=== PATIENT | male | born 2000 | race Asian ===

== ENCOUNTER 2020-01-31 13:56 | Emergency (ER) | payer OTHER ==
[2020-01-31] MEDS ORDERED: Lidocaine 2% VISCOUS* 15 ML UDC PO ONE (15:37)
[2020-01-31] MEDS ORDERED: Ibuprofen TAB* 600 MG PO ONE (15:38)
--- NOTE | 2020-01-31 15:43 | ED ---
Throat Pain/Nasal Congestion - HPI Summary HPI Summary: 19-year-old male presents to the emergency department today with a chief complaint of a sore throat. Patient states he has a 6 out of 10 sore throat which began 2 days ago with no associated fever. Patient states due to his sore throat he's had difficulty with by mouth fluids and food. Patient has been taking ibuprofen for alleviation of his pain. Patient states he also has mild chest congestion with mild shortness of breath. Patient states he has had mono for 1 year and his symptoms "never really went away". Patient otherwise feels well and denies changes in vision, headache, drooling, difficulty breathing, abdominal pain, nausea, vomiting, diarrhea, cough. - History of Current Complaint Chief Complaint: EDShortnessOfBreath Time Seen by Provider: 01/31/20 15:24 Hx Obtained From: Patient Onset/Duration: Gradual Onset, Lasting Days Severity: Moderate Associated Signs And Symptoms: Positive: Dysphagia. Negative: Drooling, Wheezing, Hoarseness Cough: None - Allergies/Home Medications Allergies/Adverse Reactions: Allergies Allergy/AdvReac Type Severity Reaction Status Date / Time fluconazole Allergy Rash Verified 01/31/20 14:07 Home Medications: Home Medications Cetirizine* [ZyrTEC 10 MG TAB*] 10 mg PO DAILY 01/31/20 [History Confirmed 01/30] ValACYclovir (*) [Valtrex 500 mg (*)] 1,000 mg PO BID 01/31/20 [History Confirmed 01/31/20] PMH/Surg Hx/FS Hx/Imm Hx Infectious Disease History: No Infectious Disease History: Denies: Traveled Outside the [place] in Last 30 Days Review of Systems Constitutional: Negative Eyes: Negative Positive: Sore Throat. Negative: Dental Pain Cardiovascular: Negative Positive: Shortness Of Breath. Negative: Cough Gastrointestinal: Negative Genitourinary: Negative Musculoskeletal: Negative Skin: Negative Neurological/Mental Status: Negative Psychological: Normal All Other Systems Reviewed And Are Negative: Yes Physical Exam - Summary Physical Exam Summary: Patient is in no acute distress. There is no evidence of accessory muscle use. Patient speaks in full and broken sentences. No stridor, wheezing, tracheal deviation. Patient's resting comfortably on the stretcher. Patient's pharynx is mildly erythematous but there is no tonsillar swelling or exudate. Uvula is midline. Triage Information Reviewed: Yes Vital Signs On Initial Exam: Initial Vitals Temp Pulse Resp BP Pulse Ox 97.8 F 100 18 134/86 95 01/31/20 14:06 01/31/20 14:06 01/31/20 14:06 01/31/20 14:06 01/31/20 14:06 Vital Signs Reviewed: Yes Appearance: Positive: Well-Appearing, No Pain Distress, Well-Nourished Skin: Positive: Warm, Skin Color Reflects Adequate Perfusion Eyes: Positive: EOMI, KAVON ENT: Positive: Hearing grossly normal Respiratory/Lung Sounds: Positive: Clear to Auscultation, Breath Sounds Present. Negative: Tracheal Deviation, Wheezes, Unable to speak in full sentences Cardiovascular: Positive: RRR, S1, S2 Abdomen Description: Positive: Nontender, Soft Bowel Sounds: Positive: Present Musculoskeletal: Positive: Strength/ROM Intact Neurological: Positive: Sensory/Motor Intact, Alert, Oriented to Person Place, Time, Normal Gait, Facial Symmetry, Speech Normal Psychiatric: Positive: Affect/Mood Appropriate AVPU Assessment: Alert Procedures - Sedation Patient Received Moderate/Deep Sedation with Procedure: No Diagnostics - Vital Signs Vital Signs Temp Pulse Resp BP Pulse Ox 01/31/20 14:06 97.8 F 100 18 134/86 95 - Laboratory Lab Statement: Any lab studies that have been ordered have been reviewed, and results considered in the medical decision making process. EENT Course/Dx - Course Course Of Treatment: Patient was evaluated in emergency department today for sore throat. Vitals noted and stable. Patient afebrile. No evidence of peritonsillar abscess. Patient was given by mouth fluids as well as viscous lidocaine swallow and ibuprofen for his symptoms. Patient tolerated by mouth fluids well. Patient diagnosed with viral pharyngitis and discharged with outpatient follow-up. This patient was considered low risk for transmission of COVID 19 and was not tested. - Differential Diagnoses Differential Diagnoses: Laryngitis, Pharyngitis, Tonsilitis, URI/Bronchitis - Diagnoses Provider Diagnoses: Acute pharyngitis Discharge ED - Sign-Out/Discharge Documenting (check all that apply): Patient Departure - Discharge Plan Condition: Stable Disposition: HOME Patient Education Materials: Pharyngitis (ED) Referrals: Dario Rangel WRAPPER AND PRESERVER [Primary Care Provider] - 5 Days Additional Instructions: You were seen in the emergency department today due to a sore throat. Acute pharyngitis is most often caused by upper respiratory viruses. Please follow- up with your primary care provider in 5-7 days if you continue to have severe symptoms as you may require antibiotics at that time. You are considered low risk for COVID-19 due to your history. Please take ibuprofen 600 mg every 6 hours as needed for pain as well as use of other measures such as warm tea with honey for alleviation of your pain. Please return to the emergency department immediately should you develop any new or worsening symptoms. - Billing Disposition and Condition Condition: STABLE Disposition: Home
--- OUTSIDE RECORDS SUMMARY | 2020-01-31 16:08 | XMS REPORT | Continuity of Care Document ---
:2000 External Reference #:[id number] Author Name Dario Rangel NP Address 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 Problems Description No Information Available Social History Type Date Description Comments Sex Unknown ETOH Use Denies alcohol use Tobacco Use Start: Unknown Patient has never smoked Smoking Status Reviewed: 01/19/20 Patient has never smoked Allergies, Adverse Reactions, Alerts Description No Information Available Medications Active Medications SIG Qnty Indications Ordering Provider Date Cetirizine HCL 1 by mouth every Unknown 10mg day Tablets Valacyclovir HCL two tablets twice Unknown 500mg daily Tablets Immunizations Description No Information Available Vital Signs Date Vital Result Comment 01/19/2020 11:04am Height 71 inches 5'11" Heart Rate 85 /min BP Systolic 129 mmHg BP Diastolic 72 mmHg Body Temperature 97.2 F Results Description No Information Available Procedures Description No Information Available Medical Devices Description No Information Available Encounters Description No Information Available Assessments Date Code Description Provider 01/19/2020 R53.83 Other fatigue Dario Rangel NP 01/19/2020 M79.10 Myalgia, unspecified site Dario Rangel NP 01/19/2020 R10.12 Left upper quadrant pain Dario Rangel NP Plan of Treatment 01/19/2020 - Dario Rangel NPR53.83 Other fatigueComments:I am ordering some lab work to evaluate your symptoms. I will notify you of the results.M79.10 Myalgia , unspecified siteR10.12 Left upper quadrant pain Functional Status Description No Information Available Mental Status Description No Information Available Referrals Description No Information Available
--- OUTSIDE RECORDS SUMMARY | 2020-01-31 16:08 | XMS REPORT | Continuity of Care Document ---
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 No Information Available Social History [...] 72 mmHg Body Temperature 97.2 F Results Test Acquired Date Facility Test Result H/L Range Note CBC Auto 01/19/2020 [facility] White Blood 5.1 10^3/uL Normal 3.5-10.[address] Count [place], [place] [id number] [phone] Red Blood Count 5.52 10^6/uL High 4.18-5.48 Hemoglobin 16.9 g/dL Normal 14.0-18.0 Hematocrit 49 % Normal 42-52 Mean Corpuscular Volume 88 fL Normal 80-94 Mean Corpuscular Hemoglobin 31 pg Normal 27-31 Mean Corpuscular HGB Conc 35 g/dL Normal 31-36 Red Cell Distribution Width 13 % Normal 10-15 Platelet Count 231 10^3/uL Normal 150-450 Mean Platelet Volume 7.2 fL Low 7.4-10.4 Abs Neutrophils 3.0 10^3/uL Normal 1.5-7.7 Abs Lymphocytes 1.6 10^3/uL Normal 1.0-4.8 Abs Monocytes 0.3 10^3/uL Normal 0-0.8 Abs Eosinophils 0.1 10^3/uL Normal 0-0.6 Abs Basophils 0.0 10^3/uL Normal 0-0.2 Abs Nucleated RBC 0.0 10^3/uL Granulocyte % 60.2 % Lymphocyte % 31.4 % Monocyte % 6.7 % Eosinophil % 1.4 % Basophil % 0.3 % Nucleated Red Blood Cells % 0.0 Comp Metabolic 01/19/2020 [facility] Sodium 139 mmol/L Normal 135-[address] [place] [address] [phone] Potassium 3.9 mmol/L Normal 3.5-5.0 Chloride 105 mmol/L Normal 101-111 Co2 Carbon Dioxide 25 mmol/L Normal 22-32 Anion Gap 9 mmol/L Normal 2-11 Glucose 102 mg/dL High 70-100 Blood Urea Nitrogen 16 mg/dL Normal 6-24 Creatinine 0.77 mg/dL Normal 0.67-1.17 BUN/Creatinine Ratio 20.8 High 8-20 Calcium 10.1 mg/dL Normal 8.6-10.3 Total Protein 7.6 g/dL Normal 6.4-8.9 Albumin 5.0 g/dL Normal 3.2-5.2 Globulin 2.6 g/dL Normal 2-4 Albumin/Globulin Ratio 1.9 Normal 1-3 Total Bilirubin 0.40 mg/dL Normal 0.2-1.0 Alkaline Phosphatase 88 U/L Normal 34-104 Alt 15 U/L Normal 7-52 Ast 16 U/L Normal 13-39 Egfr Non- 128.8 >60 Egfr 155.9 >60 1 CMV 01/19/2020 [facility] Cytomegalovirus Positive Abnormal Negative 2 Igg/Igm 101 [place] [address] [phone] Cytomegalovirus IgM Antibody Positive Abnormal Negative 3 Laboratory 01/19/2020 [facility] TSH (Thyroid 4.03 Normal 0.34 -5.[address] Stim Horm) mcIU/[place] [address] [phone] Monospot Negative Negative 4 Vitamin B12 457 pg/mL Normal 180-914 5 Erythrocyte Sed Rate 2 mm/Hr Normal 0-14 6 C Reactive Protein 1.71 mg/L Normal <8.01 Lyme Screen W/ Reflex To WB Negative Negative Nuclear AB 01/19/2020 [facility] Nuclear Ab Positive 1:320 Abnormal 7 (Dalia) By [facility] [address] (Dalia) by [facility], [place] [address] IgG [phone] Dalia Titer: 1:320 Dalia Pattern: Speckled 8 Laboratory test 01/19/2020 [facility] Lipase 29 U/L Normal 11.0-82.[address] [place] [address] [phone] Ebv Guy Piper 01/19/2020 [facility] Ebv Capsid Positive Negative Comprehensive [address] [place] [address] [phone] Ebv Capsid Ag IgM Ab Negative Negative Guy-Piper Nuclear Antigen Positive Negative Guy-Piper Virus Interp See Comment 9 1 Because ethnic data is not always readily available, this report includes an eGFR for both -Americans and non- Americans. The National Kidney Disease Education Program (NKDEP) does not endorse the use of the MDRD equation for patients that are not between the ages of 18 and 70, are , have extremes of body size, muscle mass, or nutritional status, or are non- or non-. According to the National Kidney Foundation, irrespective of diagnosis, the stage of the disease is based on the level of kidney function: Stage Description GFR(mL/min/1.73 m(2)) 1 Kidney damage with normal or decreased GFR 90 2 Kidney damage with mild decrease in GFR 60-89 3 Moderate decrease in GFR 30-59 4 Severe decrease in GFR 15-29 5 Kidney failure <15 (or dialysis) 2 Test Performed by: [facility] [address] [place] [address] Digital Solutions Architect: Randy Silva M.D. Ph.D.; CLIA# [id number] 3 Results suggest recent infection. 4 Would you like an EBV if Monospot is Negative?: Y 5 Normal Range 180 to 914 Indeterminate Range 145 to 180 Deficient Range <145 6 Would you like an EBV if Monospot is Negative?: Y 7 REFERENCE VALUE <1:80 (Negative) 8 Test Performed by: [place] [address] Digital Solutions Architect: Randy Silva M.D. Ph.D.; CLIA# [id number] 9 RESULT: Results suggest past infection. ADDITIONAL INFORMATION In most populations, at least 90% of the adult population will have been infected with EBV sometime in the past and therefore, will be positive for anti-VCA/IgG and anti- EBNA. Antibodies to EBNA develop 6-8 weeks after primary infection and remain present for life. Presence of VCA/ IgM antibodies indicates recent primary infection with EBV. Test Performed by: [place] [address] Digital Solutions Architect: Randy Silva M.D. 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 I will notify you of the results.M79.10 Myalgia , unspecified siteR10.12 Left upper quadrant pain Functional Status Description No Information Available Mental Status Description No Information Available Referrals Description No Information Available
--- OUTSIDE RECORDS SUMMARY | 2020-01-31 16:08 | XMS REPORT | Continuity of Care Document ---
:1999 External Reference #:[id number] Author Name Allergy Injection (transmitted by agent of provider Krissy March) Address [address] [id number] Problems Active Problems Provider Date Allergic rhinitis due to pollen Yony Rosario M.D. Onset: 11/21/2019 Social History Type Date Description Comments Sex Unknown ETOH Use Denies alcohol use Tobacco Use Start: Unknown Patient has never smoked Recreational Drug Use Denies Drug Use Allergies, Adverse Reactions, Alerts Description No Known Drug Allergies Medications Active Medications SIG Qnty Indications Ordering Provider Date Epinephrine use as directed - 2units Cindy Castle, 12/02/2019 0.3mg/0.3ML mylan generic TAX ACCOUNTANT-C Solution Auto-Inject only [facility]# [id number] Nasacort Allergy 24HR spray 1 spray Unknown into each nostril 55mcg/Act Aerosol one time daily History Medications No Active Medications Unknown 11/21/2019 - 11/21/2019 Medications Administered in Office Medication SIG Qnty Indications Ordering Provider Date Injection Allergy Injection 01/12/2020 Injection Injection Allergy Injection 01/05/2020 Injection Injection Allergy Injection 12/29/2019 Injection Injection Allergy Injection 12/22/2019 Injection Injection Allergy Injection 12/15/2019 Injection Injection Allergy Injection 12/08/2019 Injection Injection Allergy Injection 12/01/2019 Injection Injection Allergy Injection 11/24/2019 Injection Immunizations Description No Information Available Vital Signs Date Vital Result Comment 11/21/2019 1:40pm Height 70 inches 5'10" Weight 190.00 lb Weight 86.184 kg Respiratory Rate 18 /min Heart Rate 80 /min O2 % BldC Oximetry 98 % BP Systolic 136 mmHg BP Diastolic 83 mmHg BMI (Body Mass Index) 27.3 kg/m2 Results Description No Information Available Procedures Date Code Description Status 01/12/2020 86493 Injection Completed 01/05/2020 35458 Injection Completed 12/29/2019 01743 Injection Completed 12/22/2019 90762 Injection Completed 12/15/2019 37876 Injection Completed 12/08/2019 14940 Injection Completed 12/01/2019 42272 Injection Completed 11/24/2019 12107 Injection Completed Medical Devices Description No Information Available Encounters Type Date Location Provider Dx Diagnosis Office Visit 11/21/2019 2:20p Iza Rosario M.D. J30.1 Allergic rhinitis due to pollen Assessments Date Code Description Provider 01/12/2020 J30.1 Allergic rhinitis due to pollen Yony Rosario M.D. 01/12/2020 J30.1 Allergic rhinitis due to pollen Allergy Injection 01/12/2020 J30.89 Other allergic rhinitis Yony Rosario M.D. 01/12/2020 J30.89 Other allergic rhinitis Allergy Injection 01/05/2020 J30.1 Allergic rhinitis due to pollen Yony Rosario M.D. 01/05/2020 J30.1 Allergic rhinitis due to pollen Allergy Injection 01/05/2020 J30.89 Other allergic rhinitis Yony Rosario M.D. 01/05/2020 J30.89 Other allergic rhinitis Allergy Injection 12/29/2019 J30.1 Allergic rhinitis due to pollen Yony Rosario M.D. 12/29/2019 J30.1 Allergic rhinitis due to pollen Allergy Injection 12/29/2019 J30.89 Other allergic rhinitis Yony Rosario M.D. 12/29/2019 J30.89 Other allergic rhinitis Allergy Injection 12/22/2019 J30.1 Allergic rhinitis due to pollen Yony Rosario M.D. 12/22/2019 J30.1 Allergic rhinitis due to pollen Allergy Injection 12/22/2019 J30.89 Other allergic rhinitis Yony Rosario M.D. 12/22/2019 J30.89 Other allergic rhinitis Allergy Injection 12/15/2019 J30.1 Allergic rhinitis due to pollen Yony Rosario M.D. 12/15/2019 J30.1 Allergic rhinitis due to pollen Allergy Injection 12/15/2019 J30.89 Other allergic rhinitis Yony Rosario M.D. 12/15/2019 J30.89 Other allergic rhinitis Allergy Injection 12/08/2019 J30.1 Allergic rhinitis due to pollen Yony Rosario M.D. 12/08/2019 J30.1 Allergic rhinitis due to pollen Allergy Injection 12/08/2019 J30.89 Other allergic arun Rosario M.D. 12/08/2019 J30.89 Other allergic rhinitis Allergy Injection 12/01/2019 J30.1 Allergic rhinitis due to pollen Yony Rosario M.D. 12/01/2019 J30.1 Allergic rhinitis due to pollen Allergy Injection 12/01/2019 J30.89 Other allergic rhinitis Yony Rosario M.D. 12/01/2019 J30.89 Other allergic rhinitis Allergy Injection 11/24/2019 J30.1 Allergic rhinitis due to pollen Yony Rosario M.D. 11/24/2019 J30.1 Allergic rhinitis due to pollen Allergy Injection 11/21/2019 J30.1 Allergic rhinitis due to pollen Yony Rosario M.D. Plan of Treatment No Information Available Functional Status Description No Information Available Mental Status Description No Information Available Referrals Description No Information Available
--- OUTSIDE RECORDS SUMMARY | 2020-01-31 16:08 | XMS REPORT | Summary of Care ---
:2000 Author Organization [facility] Address [address] [place] [address] Care Team Providers Name Role Phone Jordon Franklin MD Primary Care Provider Encounter Details Date Type Department Care Team Description 12/13/2019 Office Visit FAX UROLOGY Bob Galloway, Pain (Primary Dx) [address] [place] [address] [phone] [place] [address] [phone] Allergies No Known Allergiesdocumented as of this encounter (statuses as of 01/03/2020) Medications Medication Sig Dispensed Refills Start Date End Date Status cetirizine (ZyrTEC) Take 10 mg by 0 Active 10 mg tablet mouth 1 (one) time each day in the evening. lidocaine-prilocain Apply topically if 1 kit 0 12/13/2019 12/20/2019 e (EMLA) needed for mild creamIndications: pain for up to 7 Pain days. Apply topically to affected area BID for 7 days. Dispense 1 tube. documented as of this encounter (statuses as of 01/03/2020) Active Problems Problem Noted Date Pain 01/03/2020 Phimosis 10/05/2019 Depression documented as of this encounter (statuses as of 01/03/2020) Social History Tobacco Use Types Packs/Day Years Used Date Never Smoker Smokeless Tobacco: Never Used Alcohol Use Drinks/Week oz/Week Comments Not Currently Sex Assigned at Date Recorded Not on file Job Start Date Occupation Industry Not on file Not on file Not on file Travel History Travel Start Travel End No recent travel history available. documented as of this encounter Last Filed Vital Signs Not on filedocumented in this encounter Progress Notes Bob Galloway MD - 12/13/2019 3:45 PM EST FOLLOW-UP UROLOGY OFFICE VISIT Date 01/03/20 Urology Provider Bob Galloway MD Diagnosis / Summary 19-year-old manwithredundant foreskin and phimosis. Patient also has frenular adhesion that is painful with erections.Patient underwent circumcision and frenuloplasty 10/17/2019. Patient had a pseudomonal infection of the wound treated with Cipro. At visit 11/22/2019 we discussed extending course of Cipro for 5 more days with reassessment in 1 week. He reports minor improvement. There is still itching at the incision site. We discussed possibility of topical hydrocortisone cream for 14 days for itching. We will reassess symptoms in 2 weeks. Interval History Patient presents today for symptom reassessment. He reports improvement. There is still minor itching at the suture line. Since last time he denies new onset gross hematuria, dysuria, frequency urgency, difficulty with urination. Past Medical History He has a past medical history of Depression, Intact skin, Phimosis, Phimosis of penis, and Wears glasses. Surgical History He has a past surgical history that includes Circumcision, non- (2018). Social History He reports that he has never smoked. He has never used smokeless tobacco. He reports that he drank alcohol. He reports that he has current or past drug history. Family History Family History Problem Relation Age of Onset Hypertension Father Allergies Patient has no known allergies. Medications Current Outpatient Medications: cetirizine (ZyrTEC) 10 mg tablet, Take 10 mg by mouth 1 (one) time each day in the evening.,Disp: , Rfl: Review of Systems Constitutional: Negative for chills and fever. HENT: Negative for ear pain and sore throat. Eyes: Negative for pain and visual disturbance. Respiratory: Negative for cough and shortness of breath. Cardiovascular: Negative for chest pain and palpitations. Gastrointestinal: Negative for abdominal pain and vomiting. Genitourinary: Negative for dysuria and hematuria. Musculoskeletal: Negative for arthralgias and back pain. Skin: Negative for color change and rash. Neurological: Negative for seizures and syncope. All other systems reviewed and are negative. Physical Exam Constitutional: He is oriented to person, place, and time. He appears well- developed and well-nourished. HENT: Head: Normocephalic. Eyes: Conjunctivae are normal. Neck: Neck supple. Pulmonary/Chest: Effort normal. Abdominal: He exhibits no distension. Genitourinary: Genitourinary Comments: Circumcised penis. Incision sites clean, intact, non indurated. Mild erythema much less than prior. Musculoskeletal: He exhibits no edema. Neurological: He is alert and oriented to person, place, and time. Skin: Skin is warm and dry. Psychiatric: He has a normal mood and affect. Last Recorded Vitals There were no vitals taken for this visit. Relevant Results Lab Results Component Value Date WBC 5.21 10/13/2019 HGB 16.1 10/13/2019 HCT 49.0 10/13/2019 MCV 91.2 10/13/2019 PLT 197 10/13/2019 Lab Results Component Value Date GLUCOSE 98 10/13/2019 CALCIUM 8.9 10/13/2019 NA 141 10/13/2019 K 3.8 10/13/2019 CO2 30.0 10/13/2019 CL 108.0 (H) 10/13/2019 BUN 9 10/13/2019 CREATININE 0.69 10/13/2019 CrCl cannot be calculated (Patient's most recent lab result is older than the maximum 7 days allowed.). Diagnoses Patient Active Problem List Diagnosis Phimosis Depression Assessment 19-year-old manwithredundant foreskin and phimosis. Patient also has frenular adhesion that is painful with erections.Patient underwent circumcision and frenuloplasty 10/17/2019. Patient had a pseudomonal infection of the wound treated with Cipro. At visit 11/22/2019 we discussed extending course of Cipro for 5 more days with reassessment in 1 week. Patient reported some itching at incision site that was treated with topical hydrocortisone cream for 14 days for itching. He reported improvement in symptoms with some minor itching on occasion. We discussed follow up in 1 month. Ifsymptoms resolve , patient will call to cancel appointment. Plan 1. Continue hydrocortisone cream 2.5% BID for 14 days 2. Schedule follow up in 4 weeks. Patient will cancel appointment if symptoms improved. 3. Call with questions or concerns documented in this encounter Plan of Treatment Health Maintenance Due Date Last Done Comments MMR Vaccines (1 of 1 - Standard 2000 series) DTaP,Tdap,and Td Vaccines (1 - 2006 Tdap) Varicella Vaccines (1 of 2 - 13+ 2012 2-dose series) Influenza Vaccine (#1) 2019 Pneumococcal Vaccine: 65+ Years (1 2064 of 2 - PCV13) HIB Vaccines Aged Out No longer eligible based on patient's age to complete this topic Hepatitis A Vaccines Aged Out No longer eligible based on patient's age to complete this topic IPV Vaccines Aged Out No longer eligible based on patient's age to complete this topic documented as of this encounter Results Not on filedocumented in this encounter Visit Diagnoses Diagnosis Pain - Primary Generalized pain documented in this encounter documented as of this encounter Advance Directives Type Date 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
--- OUTSIDE RECORDS SUMMARY | 2020-01-31 16:08 | XMS REPORT | Continuity of Care Document ---
:2000 External Reference #:[id number] Author Name Allergy Injection (transmitted by agent of provider Cathy Justin) Address [address] [place] [address] Problems Active Problems Provider Date Allergic rhinitis [...] 2units Cindy Castle, 12/02/2019 0.3mg/0.3ML mylan generic DAIRY HELPER-C Solution Auto-Inject only [facility]# [id number] Nasacort Allergy 24HR spray 1 spray Unknown into each nostril 55mcg/Act Aerosol one time daily History Medications No Active Medications Unknown 11/21/2019 - 11/21/2019 Medications Administered in Office Medication SIG Qnty Indications Ordering Provider Date Injection Allergy Injection 01/19/2020 Injection Injection Allergy Injection 01/12/2020 Injection Injection Allergy [...] Information Available Procedures Date Code Description Status 01/19/2020 38770 Injection Completed 01/12/2020 68613 Injection Completed 01/05/2020 25107 Injection Completed 12/29/2019 39905 Injection Completed 12/22/2019 13180 Injection Completed 12/15/2019 00699 Injection Completed 12/08/2019 77586 Injection Completed 12/01/2019 46185 Injection Completed 11/24/2019 12328 Injection Completed Medical Devices Description No Information Available Encounters Type Date Location Provider Dx Diagnosis Office Visit 11/21/2019 2:20p Iza Rosairo M.D. J30.1 Allergic rhinitis due to pollen Assessments Date Code Description Provider 01/19/2020 J30.1 Allergic rhinitis due to pollen Yony Rosario M.D. 01/19/2020 J30.1 Allergic rhinitis due to pollen Allergy Injection 01/19/2020 J30.89 Other allergic rhinitis Yony Rosario M.D. 01/19/2020 J30.89 Other allergic rhinitis Allergy Injection 01/12/2020 J30.1 Allergic rhinitis due to pollen [...] pollen Allergy Injection 12/08/2019 J30.89 Other allergic rhinitis Yony Rosario M.D. 12/08/2019 J30.89 Other allergic rhinitis [...]
--- OUTSIDE RECORDS SUMMARY | 2020-01-31 16:08 | XMS REPORT | Continuity of Care Document ---
:2000 External Reference #:[id number] Author Name Allergy Injection (transmitted by agent of provider Krissy March) Address [address] [id number] Problems Active Problems Provider Date Allergic rhinitis [...] Provider Date Epinephrine use as directed - 2unthanh Castle, 12/02/2019 0.3mg/0.3ML mylan generic TEST MAN-C Solution Auto-Inject only [facility]# [id number] Nasacort Allergy 24HR spray 1 spray Unknown into each nostril 55mcg/Act Aerosol one time daily History Medications No Active Medications Unknown 11/21/2019 - 11/21/2019 Medications Administered in Office Medication SIG Qnty Indications Ordering Provider Date Injection Allergy Injection 01/05/2020 Injection Injection Allergy [...] Information Available Procedures Date Code Description Status 01/05/2020 21192 Injection Completed 12/29/2019 37940 Injection Completed 12/22/2019 07828 Injection Completed 12/15/2019 77142 Injection Completed 12/08/2019 50530 Injection Completed 12/01/2019 01425 Injection Completed 11/24/2019 10184 Injection Completed Medical Devices Description No Information Available Encounters Type Date Location Provider Dx Diagnosis Office Visit 11/21/2019 2:20p Iza Rosario M.D. J30.1 Allergic rhinitis due to pollen Assessments Date Code Description Provider 01/05/2020 J30.1 Allergic rhinitis due to pollen [...]
--- OUTSIDE RECORDS SUMMARY | 2020-01-31 16:08 | XMS REPORT | Summary of Care ---
:2000 Author Organization [facility] Address [address] [address] Care Team Providers Name Role Phone Jayson Earl Primary Care Provider Reason for Visit Reason Comments New Patient Pt presents to establish care Check Up Got mononucleosis in January, had two t-spots that were neg. and then he had a blood test that was pos., now he is tired Encounter Details Date Type Department Care Team Description 12/21/2019 Office Visit [facility] Jayson Earl Routine general medical examination at a health care facility (Primary Dx); IAN [place]arr[place] Malaise and fatigue; [address] [facility] Encounter for screening for human immunodeficiency virus (HIV) [place] [address] [place] [address] Allergies No Known Allergiesdocumented as of this encounter (statuses as of 12/21/2019) Medications No known medicationsdocumented as of this encounter (statuses as of 12/21/2019) Active Problems No known active problemsdocumented as of this encounter (statuses as of 2019) Social History Tobacco Use Types Packs/Day Years Used Date Never Smoker Smokeless Tobacco: Never Used Alcohol Use Drinks/Week oz/Week Comments Not Currently Social Isolation Answer Date Recorded In a typical week, how many times do you More than three times a week 2019 talk on the phone with family, friends, or neighbors? How often do you get together with friends More than three times a week 12/21 or relatives? How often do you attend pentecostalism or Never 12/21/2019 temple services? Do you belong to any clubs or Yes 12/21/2019 organizations such as pentecostalism groups, unions, fraternal or athletic groups, or school groups? How often do you attend meetings of the More than 4 times per year 12/21/2019 clubs or organizations you belong to? Are you now , , , Never 12/21/2019 , never or living with a partner? Physical Activity Answer Date Recorded On average, how many days per week do you engage in moderate to 5 days 2019 strenuous exercise (like walking fast, running, jogging, dancing, swimming, biking, or other activities that cause a light or heavy sweat)? On average, how many minutes do you engage in exercise at this 60 min 2019 level? Stress Answer Date Recorded Do you feel stress - tense, restless, nervous, or anxious, Not at all 2019 or unable to sleep at night because your mind is troubled all the time - these days? Financial Resource Strain Answer Date Recorded How hard is it for you to pay for the very basics like Not hard at all 2019 food, housing, medical care, and heating? Intimate Partner Violence Answer Date Recorded Within the last year, have you been afraid of your partner or No 12/21/2019 ex-partner? Within the last year, have you been humiliated or emotionally No 12/21/2019 abused in other ways by your partner or ex-partner? Within the last year, have you been kicked, hit, slapped, or No 12/21/2019 otherwise physically hurt by your partner or ex-partner? Within the last year, have you been raped or forced to have any No 12/21/2019 kind of sexual activity by your partner or ex-partner? Food Insecurity Answer Date Recorded Within the past 12 months, you worried that your food would Never true 2019 run out before you got money to buy more. Within the past 12 months, the food you bought just didn't Never true 2019 last and you didn't have money to get more. Transportation Needs Answer Date Recorded In the past 12 months, has lack of transportation kept you from No 12/21/2019 medical appointments or from getting medications? In the past 12 months, has lack of transportation kept you from No 12/21/2019 meetings, work, or getting things needed for daily living? Sex Assigned at Date Recorded Not on file documented as of this encounter Last Filed Vital Signs Vital Sign Reading Time Taken Comments Blood Pressure 120/81 12/21/2019 2:41 PM EST Pulse 88 12/21/2019 2:41 PM EST Temperature 37 12/21/2019 2:41 PM EST C (98.6 F) Respiratory Rate - - Oxygen Saturation 98% 12/21/2019 2:41 PM EST Inhaled Oxygen Concentration - - Weight 75.3 kg (166 lb) 12/21/2019 2:41 PM EST Height 179.1 cm (5' 10.5") 12/21/2019 2:41 PM EST Body Mass Index 23.48 12/21/2019 2:41 PM EST documented in this encounter Progress Notes Jayson Earl PA - 12/21/2019 2:40 PM EST PATIENT: Gregory Munoz : 2000 DATE OF SERVICE: 12/21/2019 CHIEF COMPLAINT: Chief Complaint Patient presents with ? New Patient Pt presents to establish care ? Check Up Got mononucleosis in January, had two t-spots that were neg. and then he had a blood test that was pos., now he is tired Subjective HISTORY OF PRESENT ILLNESS: Gregory Munoz is a 19-y.o. male. Gregory presents to the office to establish care with me. He is not currently taking medications for chronic conditions. Today a comprehensive history and physical was completed. Today he does complain of fatigue. Symptoms began last January after being diagnosed with mononucleosis, which he feels has not fully resolved. Sentinal symptom the patient feels fatigue began with: no other symptoms development. Symptoms of his fatigue have been general malaise. Patient describes the following psychologic symptoms: none. Patient denies fever, significant change in weight, true exercise intolerance, cold intolerance, constipation,, and change in hair texture. The course has been gradually worsening. Severity has been symptoms bothersome, but easily able to carry out all usual activities of daily living. Previous visits for this problem: none. Past Medical History: Diagnosis Date ? Depression past history ? Headache disorder migraines Family History Problem Relation Age of Onset ? Hypertension Father No current outpatient medications on file. No current facility-administered medications for this visit. No Known Allergies Social History Socioeconomic History ? Marital status: Single Spouse name: Not on file ? Number of children: Not on file ? Years of education: Not on file ? Highest education level: Not on file Occupational History Employer: [employer] Social Needs ? Financial resource strain: Not hard at all ? Food insecurity Worry: Never true Inability: Never true ? Transportation needs Medical: No Non-medical: No Tobacco Use ? Smoking status: Never Smoker ? Smokeless tobacco: Never Used Substance and Sexual Activity ? Alcohol use: Not Currently ? Drug use: Never ? Sexual activity: Yes Partners: Male Lifestyle ? Physical activity Days per week: 5 days Minutes per session: 60 min ? Stress: Not at all Relationships ? Social connections Talks on phone: More than three times a week Gets together: More than three times a week Attends temple service: Never Active member of club or organization: Yes Attends meetings of clubs or organizations: More than 4 times per year Relationship status: Never ? Intimate partner violence Fear of current or ex partner: No Emotionally abused: No Physically abused: No Forced sexual activity: No Other Topics Concern ? Not on file Social History Narrative ? Not on file Over the last 2 weeks, have you been feeling down, depressed, anxious, or hopeless?: 0 Over the past 2 weeks, have you felt little interest or pleasure in doing things ?: 0 REVIEW OF SYSTEMS: Review of Systems Constitutional: Negative for chills, fever and weight loss. HENT: Negative for congestion, ear pain, hearing loss, sore throat and tinnitus. Eyes: Negative for blurred vision, double vision and photophobia. Respiratory: Negative for cough, sputum production and shortness of breath. Cardiovascular: Negative for chest pain, palpitations, orthopnea and leg swelling. Gastrointestinal: Negative for abdominal pain, blood in stool, diarrhea and heartburn. Genitourinary: Negative for dysuria, flank pain and hematuria. Musculoskeletal: Negative for falls, joint pain and myalgias. Skin: Negative for itching and rash. Neurological: Negative for dizziness, sensory change, speech change, loss of consciousness and weakness. Endo/Heme/Allergies: Negative for environmental allergies and polydipsia. Does not bruise/bleed easily. Psychiatric/Behavioral: Negative for depression, substance abuse and suicidal ideas. The patient is not nervous/anxious. Objective PHYSICAL EXAM: VITALS: BP 120/81 (BP Location: Left arm, Patient Position: Sitting) | Pulse 88 | Temp 98.6 F(37 C) (Tympanic) | Ht 5' 10.5" (1.791 m) | Wt 166 lb (75.3 kg) | SpO2 98% | BMI 23.48 kg/m Body mass index is 23.48 kg/m . Physical Exam Vitals signs and nursing note reviewed. Constitutional: General: He is not in acute distress. Appearance: He is not ill-appearing or diaphoretic. HENT: Head: Normocephalic and atraumatic. Right Ear: Tympanic membrane, ear canal and external ear normal. Left Ear: Tympanic membrane, ear canal and external ear normal. Nose: No congestion or rhinorrhea. Mouth/Throat: Mouth: Mucous membranes are moist. Pharynx: No oropharyngeal exudate or posterior oropharyngeal erythema. Eyes: General: Right eye: No discharge. Left eye: No discharge. Extraocular Movements: Extraocular movements intact. Conjunctiva/sclera: Conjunctivae normal. Pupils: Pupils are equal, round, and reactive to light. Neck: Musculoskeletal: Normal range of motion and neck supple. No muscular tenderness. Cardiovascular: Rate and Rhythm: Normal rate and regular rhythm. Pulses: Normal pulses. Heart sounds: No murmur. No friction rub. No gallop. Pulmonary: Effort: No respiratory distress. Breath sounds: No wheezing, rhonchi or rales. Abdominal: General: Abdomen is flat. Bowel sounds are normal. Palpations: Abdomen is soft. Tenderness: There is no abdominal tenderness. There is no right CVA tenderness, left CVA tenderness, guarding or rebound. Musculoskeletal: Normal range of motion. General: No swelling or tenderness. Lymphadenopathy: Cervical: No cervical adenopathy. Skin: General: Skin is warm and dry. Capillary Refill: Capillary refill takes less than 2 seconds. Findings: No lesion or rash. Neurological: General: No focal deficit present. Mental Status: He is alert and oriented to person, place, and time. Cranial Nerves: No cranial nerve deficit. Motor: No weakness. Coordination: Coordination normal. Deep Tendon Reflexes: Reflexes normal. Psychiatric: Mood and Affect: Mood normal. Behavior: Behavior normal. Thought Content: Thought content normal. ASSESSMENT / IMPRESSION: ICD-9-CM ICD-10-CM 1. Routine general medical examination at a [facility] care facility V70.0 Z00.00 2. Malaise and fatigue 780.79 R53.81 CBC WITH DIFFERENTIAL R53.83 COMPREHENSIVE METABOLIC PANEL THYROID STIMULATING HORMONE VITAMIN D 25 HYDROXY (HALEY) VITAMIN D 25 HYDROXY (HALEY) THYROID STIMULATING HORMONE COMPREHENSIVE METABOLIC PANEL CBC WITH DIFFERENTIAL 3. Encounter for screening for human immunodeficiency virus (HIV) V73.89 Z11.4 HIV 1,2 ANTIBODY SCREEN HIV 1,2 ANTIBODY SCREEN This is a well patient who is currently not taking any medications for chronic conditions. He complains of fatigue today, which I do not have a specific or clear origin of. For this, baselinelaboratory work including a TSH and Vitamin D level. I will contact him with results. Patient agreed to HIV treatment. He has a history of sexual encounter with males , monogamous. Educated on risk of unprotected sex with multiple partners, which he suggests he has only one partner. Expressed understanding that he can come to our office at any time for HIV screening. Follow up annually or sooner as needed. Author: IAN Sharma 12/21/2019 16:25 documented in this encounter Plan of Treatment Name Type Priority Associated Diagnoses Date/Time HIV 1,2 ANTIBODY SCREEN Lab Routine Encounter for screening for 12/21/2019 3:22 PM human immunodeficiency EST virus (HIV) CBC WITH DIFFERENTIAL Lab Routine Malaise and fatigue 12/21/2019 3:22 PM EST COMPREHENSIVE METABOLIC Lab Routine Malaise and fatigue 12/21/2019 3:22 PM PANEL EST THYROID STIMULATING Lab Routine Malaise and fatigue 12/21/2019 3:22 PM HORMONE EST VITAMIN D 25 HYDROXY Lab Routine Malaise and fatigue 12/21/2019 3:22 PM (HALEY) EST Name Type Priority Associated Diagnoses Order Schedule HIV 1,2 ANTIBODY SCREEN Lab Routine Encounter for screening for Expected: human immunodeficiency 12/21/2019 virus (HIV) (Approximate), Expires: 12/21/2020 CBC WITH DIFFERENTIAL Lab Routine Malaise and fatigue Expected: 12/21/2019 (Approximate), Expires: 12/21/2020 COMPREHENSIVE METABOLIC Lab Routine Malaise and fatigue Expected: PANEL 12/21/2019 (Approximate), Expires: 12/21/2020 THYROID STIMULATING Lab Routine Malaise and fatigue Expected: HORMONE 12/21/2019 (Approximate), Expires: 12/21/2020 VITAMIN D 25 HYDROXY Lab Routine Malaise and fatigue Expected: (HALEY) 12/21/2019 (Approximate), Expires: 12/21/2020 Health Maintenance Due Date Last Done Comments HIV SCREENING 2014 DTaP/Tdap/Td Vaccines (1 - Tdap) 03/16/2020 Postponed from 2010 (Other) INFLUENZA VACCINE (#1) 2020 Postponed from 07/03/2019 (Other) DEPRESSION SCREENING 12/21/2020 12/21/2019 HPV IMMUNIZATION SERIES (1 - Male 12/21/2020 Postponed from 2010 2-dose series) (Other) HEPATITIS A IMMUNIZATION SERIES Aged Out No longer eligible based on patient's age to complete this topic MENINGOCOCCAL VACCINE IMM Aged Out No longer eligible based on patient's age to complete this topic PNEUMOCOCCAL 0-64 YRS Aged Out No longer eligible based on patient's age to complete this topic documented as of this encounter Results Not on filedocumented in this encounter Visit Diagnoses Diagnosis Routine general medical examination at a health care facility Malaise and fatigue Other malaise and fatigue Encounter for screening for human immunodeficiency virus (HIV) Special screening examination for other specified viral diseases documented in this encounter Insurance Payer Benefit Plan / Subscriber ID Effective Dates Phone Address Type Group MVP ESSENTIAL MVP ESSENTIAL [id number] Effective for all MVP dates (Work) documented as of this encounter
[2020-01-31 16:13] VITALS: BP 138/65
== END 2020-01-31 16:12 | disposition home or self-care (01) ==
LOC: ED 13:56
DX: J02.9 Acute pharyngitis, unspecified (principal); R06.02 Shortness of breath; Z79.899 Other long term (current) drug therapy; Z88.8 Allergy status to other drugs, medicaments and biological substances
CPT/HCPCS: 99282; A9270-GY